=== PATIENT | male | born 1970 | race Caucasian/White ===

== ENCOUNTER 2021-05-01 06:59 | Day surgery (SDC) | payer MEDICARE, OTHER ==
[2021-04-28 15:06] VITALS: BMI 46.1
[~2021-05-01 06:59] MED LIST: LACTATED RINGERS 1,000 ML IV SCH; LIDOCAINE 1% (10MG/ML) FOR IV START INTRADERMA PRN
[2021-05-01 07:55] LABS: Glucose,Whole Blood 101 mg/dL (75-99)
[2021-05-01 07:58] VITALS: TEMP 97.4
[2021-05-01] MEDS ORDERED: PROPOFOL 10 MG/ML 20 ML VIAL IV ONE (08:26)
--- NOTE | 2021-05-01 08:45 | P.PCN ---
Date of Procedure: 05/01/21 Procedure(s) Performed: BRIEF HISTORY: Patient is a 50-year-old, pleasant, male scheduled for an upper endoscopy as a part of follow-up of gastric ulcers diagnosed in November of this year. Patient was admitted to [facility] with pneumonia and had acute upper GI bleed. He had an upper endoscopy done that revealed multiple gastric ulcers. He required several transfusions that time. He scheduled for follow-up endoscopy today. PROCEDURE PERFORMED: Esophagogastroduodenoscopy. PREOPERATIVE DIAGNOSIS: Follow-up gastric ulcer. IV sedation per anesthesia. PROCEDURE: After informed consent was obtained, the patient was brought into the endoscopy unit. IV sedation was administered by Anesthesia under continuous monitoring. Initially the Olympus GIF-140 video endoscope was inserted into the mouth. Esophagus intubated without any difficulty. It was gradually advanced into the stomach and duodenum and carefully examined. The bulb and the second part of the duodenum appeared normal. The scope at this time was withdrawn to the stomach, adequately insufflated with air, and upon careful examination, mucosa of the antrum had mild gastritis but the previous noted gastric ulcers have completely healed. The body, body, cardia and the fundus appeared normal. The scope was then withdrawn into the esophagus. The GE junction was located at 39 cm from the incisors. The esophagus appeared normal. There were no erosions or ulcerations seen and the patient tolerated the procedure well. IMPRESSION: 1. Completely healed previously noted gastric ulcers. 2. Mild antral gastritis. RECOMMENDATIONS: The findings of this examination were discussed with the patient as well as his family. He was advised to stop Protonix at this time. Avoid NSAIDs. Follow up in office as needed.
[2021-05-01 08:54] VITALS: RESP 16
[2021-05-01 09:00] LABS: Glucose,Whole Blood 107 mg/dL (75-99)
[2021-05-01 09:07] VITALS: BP 140/73; PULSE 66
== END 2021-05-01 10:02 | disposition home or self-care (01) ==
LOC: ORWHC2ENDO 06:59
PROVIDERS: ATTEND Internal Medicine Gastroenterology
DX: K25.4 Chronic or unspecified gastric ulcer with hemorrhage (principal); G47.33 Obstructive sleep apnea (adult) (pediatric); Z86.718 Personal history of other venous thrombosis and embolism; Z86.16 Personal history of COVID-19; K21.9 Gastro-esophageal reflux disease without esophagitis; Z79.01 Long term (current) use of anticoagulants
CPT/HCPCS: 43235; J2704

== ENCOUNTER 2021-08-31 19:51 | Inpatient (IN) | payer MEDICARE, OTHER ==
[2021-08-31] MEDS ORDERED: SODIUM CHLORIDE 0.9% 1,000 ML IV ONE (20:01)
[2021-08-31 20:54] LABS: Basophils % (A) 0 %; Eosinophils % (A) 0 %; HCT 43.7 % (39.0-53.0); HGB 13.4 gm/dL (13.0-17.5); Lymphocytes # (A) 0.3 k/uL (1.0-4.8); Lymphocytes % (A) 2 %; MCH 28.2 pg (25.0-35.0); MCHC 30.7 g/dL (31.0-37.0); Monocytes # (A) 0.5 k/uL (0-1.0); Monocytes % (A) 4 %; Neutrophils # (A) 13.5 k/uL (1.3-7.7); Neutrophils % (A) 94 %; Platelet Count 113 k/uL (150-450); RBC 4.75 m/uL (4.30-5.90); RDW 13.6 % (11.5-15.5); WBC 14.4 k/uL (3.8-10.6)
--- NOTE | 2021-08-31 20:58 | XR ---
EXAMINATION TYPE: XR chest 2V DATE OF EXAM: 08/31/2021 8:50 PM COMPARISON:None CLINICAL INDICATION:Male, 50 years old with history of altered mental status; TECHNIQUE: Frontal and lateral views of the chest. FINDINGS: Lungs/Pleura: Haziness opacities to the lungs are felt to be secondary to Low lung volumes are presen t. There is no evidence of pleural effusion, focal consolidation, or pneumothorax. Pulmonary vascularity: Unremarkable. Heart/mediastinum: Cardiomediastinal silhouette is unremarkable. Musculoskeletal: No acute osseous pathology. IMPRESSION: Low lung volumes without evidence for acute cardiopulmonary disease/process.
[2021-08-31 21:01] LABS: INR 1.1 (<1.2); Partial Thromboplastin Time 22.3 sec (22.0-30.0)
[2021-08-31 21:02] LABS: ALT 26 U/L (4-49); AST 31 U/L (17-59); African American GFR (CKD) >90 (>60 ml/min/1.73 sqM); Albumin 3.7 g/dL (3.5-5.0); Alkaline Phosphatase 75 U/L (38-126); Anion Gap 12 mmol/L; Blood Urea Nitrogen 24 mg/dL (9-20); C Reactive Protein 4.6 mg/dL (<1.0); Calcium 8.8 mg/dL (8.4-10.2); Carbon Dioxide 25 mmol/L (22-30); Chloride 102 mmol/L (98-107); Glucose 172 mg/dL (74-99); Non-African American GFR(CKD) 89 (>60 ml/min/1.73 sqM); Potassium 4.4 mmol/L (3.5-5.1); Sodium 139 mmol/L (137-145); Total Bilirubin 0.6 mg/dL (0.2-1.3); Total Protein 6.7 g/dL (6.3-8.2)
--- NOTE | 2021-08-31 21:06 | CT ---
EXAMINATION TYPE: CT brain wo con CT DLP: 1217.4 mGycm, Automated exposure control for dose reduction was used. DATE OF EXAM: 08/31/2021 8:55 PM COMPARISON: None.. CLINICAL INDICATION:Male, 50 years old with history of altered mental TECHNIQUE: Brain: Multiple axial CT images of the brain were obtained without IV contrast. FINDINGS: Brain: Limited evaluation secondary to patient motion. Extra-axial spaces: No abnormal extra-axial fluid collections. Ventricular system: Within normal limits Cerebral parenchyma: No acute intraparenchymal hemorrhage or mass effect. The ponce-white junction is well differentiated. Cerebellum: Unremarkable. Mass effect: No evidence of midline shift. Intracranial vasculature: unremarkable Soft tissues: Normal. Calvarium/osseous structures: No depressed skull fracture. Paranasal sinuses and mastoid air cells: Clear. Visualized orbits: Orbital contents are intact. IMPRESSION: Limited evaluation secondary motion without gross evidence for acute intracranial process.
[2021-08-31 21:27] LABS: Appearance,Urine Clear (Clear); Bacteria,Urine Occasional /hpf; Bilirubin,Urine Negative (Negative); Blood,Urine Small (Negative); Color,Urine Yellow; Glucose,Urine (UA) Negative (Negative); Ketones,Urine Negative (Negative); Leukocyte Esterase,Urine Trace (Negative); Mucus,Urine Rare /hpf; Nitrite,Urine Negative (Negative); PH, Urine 6.5 (5.0-8.0); Protein,Urine Trace (Negative); RBC,Urine 1 /hpf (0-5); Specific Gravity,Urine 1.026 (1.001-1.035); Squamous Epithelial Cell,Urine <1 /hpf (0-4); WBC,Urine 4 /hpf (0-5)
[2021-08-31 21:32] LABS: Amphetamine Screen,Urine Not Detected (NotDetected); Barbiturate Screen,Urine Not Detected (NotDetected); Benzodiazepines Screen,Urine Detected (NotDetected); Cocaine Screen,Urine Not Detected (NotDetected); Methadone Screen, Urine Not Detected (NotDetected); Opiate Screen,Urine Not Detected (NotDetected); Oxycodone Screen, Urine Not Detected (NotDetected); Phencyclidine Screen,Urine Not Detected (NotDetected); Tricyclic Antidepressant,Urine Not Detected (NotDetected); Urn Cannabinoid Scrn Not Detected (NotDetected)
[2021-08-31 22:44] LABS: Erythrocyte Sedimentation Rate 13 mm/hr (0-15)
--- NOTE | 2021-08-31 23:31 | ED ---
Altered Mental Status HPI - General Chief Complaint: Altered Mental Status Stated Complaint: Altered Mental Status Time Seen by Provider: 08/31/21 20:01 Source: patient, RN notes reviewed Mode of arrival: ambulatory Limitations: no limitations, altered mental status - History of Present Illness Initial Comments: Patient is a 50-year-old male that arrives to the emergency department via EMS for altered mental status. Patient does have a past medical history is recurrent a with multiple comorbidities including morbid obesity Covid infection bilateral pneumonia. Patient was a very poor historian and gave very poor effort during initial interview and exam. Patient denied any chest pain shortness of breath headache nausea vomiting diarrhea constipation fever fatigue chills. - Related Data Home Medications Medication Instructions Recorded Confirmed ALPRAZolam [Xanax] 0.5 mg PO BID 04/28/21 08/31/21 Cholecalciferol [Vitamin D3 (25 25 mcg PO DAILY 04/28/21 08/31/21 Mcg = 1000 Iu)] Escitalopram [Lexapro] 10 mg PO DAILY 04/28/21 08/31/21 Folic Acid 1 mg PO DAILY 04/28/21 08/31/21 Modafinil [Provigil] 100 mg PO BID 04/28/21 08/31/21 Omeprazole 20 mg PO BID 04/28/21 08/31/21 Apixaban [Eliquis] 2.5 mg PO BID 08/31/21 08/31/21 Cyanocobalamin (Vitamin B-12) 500 mcg PO DAILY 08/31/21 08/31/21 [Vitamin B-12] Insulin Aspart [NovoLOG Flexpen] See Protocol SQ AC-BID@0800,1200 08/31/2108/06 metFORMIN HCL ER [Glucophage XR] 500 mg PO BID-W/MEALS 08/31/21 08/31/21 Allergies Allergy/AdvReac Type Severity Reaction Status Date / Time bee venom protein (honey bee) Allergy Anaphylaxis Verified 08/31/21 22:25 latex Allergy Rash/Hives Verified 08/31/21 22:25 Review of Systems ROS Statement: Those systems with pertinent positive or pertinent negative responses have been documented in the HPI. ROS Other: All systems not noted in ROS Statement are negative. Past Medical History Past Medical History: Diabetes Mellitus, Deep Vein Thrombosis (DVT), GERD/Reflux, Osteoarthritis (OA), Sleep Apnea/CPAP/BIPAP Additional Past Medical History / Comment(s): Patient "got Covid 10 days after receiving the Covid Vaccine, ended up with double lung Pneumonia, DVT's in both legs, 3 bleeding stomach ulcers, internal bleeding, lost a lot of blood, received 15 units of blood, had dialysis 3 times, vocal cords got roughed up, can only whisper, is still in a wheelchair, can't walk, still in a Covid fog, has Umbrella in chest to prevent blood clots from entering." No CPAP use. History of Any Multi-Drug Resistant Organisms: None Reported Past Surgical History: No Surgical Hx Reported Additional Past Surgical History / Comment(s): "Umbrella placed in chest." Past Anesthesia/Blood Transfusion Reactions: No Reported Reaction Past Psychological History: ADD/ADHD, Anxiety Smoking Status: Never smoker Past Alcohol Use History: None Reported Past Drug Use History: None Reported - Past Family History Father Family Medical History: Deep Vein Thrombosis (DVT) Mother Family Medical History: Cancer, Myocardial Infarction (NM) General Exam Limitations: no limitations, altered mental status General appearance: alert, in no apparent distress, obese (Morbidly) Head exam: Present: atraumatic, normocephalic, normal inspection Eye exam: Present: normal appearance, PERRL, EOMI. Absent: scleral icterus, conjunctival injection, periorbital swelling ENT exam: Present: normal exam, mucous membranes moist, other (Very poor dentition) Neck exam: Present: normal inspection Respiratory exam: Present: normal lung sounds bilaterally. Absent: respiratory distress, wheezes, rales, rhonchi, stridor Cardiovascular Exam: Present: regular rate, normal rhythm, normal heart sounds. Absent: systolic murmur, diastolic murmur, rubs, gallop, clicks GI/Abdominal exam: Present: soft, normal bowel sounds. Absent: distended, tenderness, guarding, rebound, rigid Extremities exam: Present: normal inspection, full ROM, normal capillary refill. Absent: tenderness, pedal edema, joint swelling, calf tenderness Neurological exam: Present: alert, oriented X3 Psychiatric exam: Present: normal affect, normal mood Skin exam: Present: warm, dry, intact, normal color. Absent: rash Course Vital Signs 08/31/21 08/31/21 20:03 21:09 Temperature 99.0 F Pulse Rate 101 H 98 Respiratory 22 18 Rate Blood Pressure 153/78 131/71 O2 Sat by Pulse 95 97 Oximetry Medical Decision Making - Medical Decision Making Patient is a 50-year-old male more the obese altered mental status via EMS. Labs, EKG, chest x-ray, CT of the brain, 1 L normal saline ordered. Labs are unremarkable, lactic acid negative, troponin negative, ammonia negative Covid test negative. Chest x-ray lung volumes but no acute process. CT of brain negative for any acute process. Case discussed with Dr. Santiago, patient be admitted for observation. Lilia Jones was consulted and will admit or observation.. - Lab Data Result diagrams: 08/31/21 20:13 08/31/21 20:13 Lab Results 08/31/21 08/31/21 08/31/21 Range/Units 20:13 20:13 20:13 WBC 14.4 H (3.8-10.6) k/uL RBC 4.75 (4.30-5.90) m/uL Hgb 13.4 (13.0-17.5) gm/dL Hct 43.7 (39.0-53.0) % MCV 92.0 (80.0-100.0) fL MCH 28.2 (25.0-35.0) pg MCHC 30.7 L (31.0-37.0) g/dL RDW 13.6 (11.5-15.5) % Plt Count 113 L (150-450) k/uL MPV 9.0 Neutrophils % 94 % Lymphocytes % 2 % Monocytes % 4 % Eosinophils % 0 % Basophils % 0 % Neutrophils # 13.5 H (1.3-7.7) k/uL Lymphocytes # 0.3 L (1.0-4.8) k/uL Monocytes # 0.5 (0-1.0) k/uL Eosinophils # 0.0 (0-0.7) k/uL Basophils # 0.0 (0-0.2) k/uL ESR 13 (0-15) mm/hr PT 12.0 (9.0-12.0) sec INR 1.1 (<1.2) APTT 22.3 (22.0-30.0) sec Sodium (137-145) mmol/L Potassium (3.5-5.1) mmol/L Chloride (98-107) mmol/L Carbon Dioxide (22-30) mmol/L Anion Gap mmol/L BUN (9-20) mg/dL Creatinine (0.66-1.25) mg/dL Est GFR (CKD-EPI)AfAm (>60 ml/min/1.73 sqM) Est GFR (CKD-EPI)NonAf (>60 ml/min/1.73 sqM) Glucose (74-99) mg/dL Plasma Lactic Acid Carlos (0.7-2.0) mmol/L Calcium (8.4-10.2) mg/dL Total Bilirubin (0.2-1.3) mg/dL AST (17-59) U/L ALT (4-49) U/L Alkaline Phosphatase (38-126) U/L Ammonia (<30) umol/L Troponin I (0.000-0.034) ng/mL C-Reactive Protein (<1.0) mg/dL Total Protein (6.3-8.2) g/dL Albumin (3.5-5.0) g/dL Urine Color Yellow Urine Appearance Clear (Clear) Urine pH 6.5 (5.0-8.0) Ur Specific [place] 1.026 (1.001-1.035) Urine Protein Trace H (Negative) Urine Glucose (UA) Negative (Negative) Urine Ketones Negative (Negative) Urine Blood Small H (Negative) Urine Nitrite Negative (Negative) Urine Bilirubin Negative (Negative) Urine Urobilinogen 3.0 (<2.0) mg/dL Ur Leukocyte Esterase Trace H (Negative) Urine RBC 1 (0-5) /hpf Urine WBC 4 (0-5) /hpf Ur Squamous Epith Cells <1 (0-4) /hpf Urine Bacteria Occasional H (None) /hpf Urine Mucus Rare H (None) /hpf Urine Opiates Screen Not Detected (NotDetected) Ur Oxycodone Screen Not Detected (NotDetected) Urine Methadone Screen Not Detected (NotDetected) Ur Propoxyphene Screen Not Detected (NotDetected) Ur Barbiturates Screen Not Detected (NotDetected) U Tricyclic Antidepress Not Detected (NotDetected) Ur Phencyclidine Scrn Not Detected (NotDetected) Ur Amphetamines Screen Not Detected (NotDetected) U Methamphetamines Scrn Not Detected (NotDetected) U Benzodiazepines Scrn Detected H (NotDetected) Urine Cocaine Screen Not Detected (NotDetected) U Marijuana (THC) Screen Not Detected (NotDetected) Coronavirus (PCR) (Not Detectd) 08/31/21 08/31/21 08/31/21 Range/Units 20:13 20:13 21:59 WBC (3.8-10.6) k/uL RBC (4.30-5.90) m/uL Hgb (13.0-17.5) gm/dL Hct (39.0-53.0) % MCV (80.0-100.0) fL MCH (25.0-35.0) pg MCHC (31.0-37.0) g/dL RDW (11.5-15.5) % Plt Count (150-450) k/uL MPV Neutrophils % % Lymphocytes % % Monocytes % % Eosinophils % % Basophils % % Neutrophils # (1.3-7.7) k/uL Lymphocytes # (1.0-4.8) k/uL Monocytes # (0-1.0) k/uL Eosinophils # (0-0.7) k/uL Basophils # (0-0.2) k/uL ESR (0-15) mm/hr PT (9.0-12.0) sec INR (<1.2) APTT (22.0-30.0) sec Sodium 139 (137-145) mmol/L Potassium 4.4 (3.5-5.1) mmol/L Chloride 102 (98-107) mmol/L Carbon Dioxide 25 (22-30) mmol/L Anion Gap 12 mmol/L BUN 24 H (9-20) mg/dL Creatinine 1.00 (0.66-1.25) mg/dL Est GFR (CKD-EPI)AfAm >90 (>60 ml/min/1.73 sqM) Est GFR (CKD-EPI)NonAf 89 (>60 ml/min/1.73 sqM) Glucose 172 H (74-99) mg/dL Plasma Lactic Acid Carlos (0.7-2.0) mmol/L Calcium 8.8 (8.4-10.2) mg/dL Total Bilirubin 0.6 (0.2-1.3) mg/dL AST 31 (17-59) U/L ALT 26 (4-49) U/L Alkaline Phosphatase 75 (38-126) U/L Ammonia (<30) umol/L Troponin I <0.012 (0.000-0.034) ng/mL C-Reactive Protein 4.6 H (<1.0) mg/dL Total Protein 6.7 (6.3-8.2) g/dL Albumin 3.7 (3.5-5.0) g/dL Urine Color Urine Appearance (Clear) Urine pH (5.0-8.0) Ur Specific [place] (1.001-1.035) Urine Protein (Negative) Urine Glucose (UA) (Negative) Urine Ketones (Negative) Urine Blood (Negative) Urine Nitrite (Negative) Urine Bilirubin (Negative) Urine Urobilinogen (<2.0) mg/dL Ur Leukocyte Esterase (Negative) Urine RBC (0-5) /hpf Urine WBC (0-5) /hpf Ur Squamous Epith Cells (0-4) /hpf Urine Bacteria (None) /hpf Urine Mucus (None) /hpf Urine Opiates Screen (NotDetected) Ur Oxycodone Screen (NotDetected) Urine Methadone Screen (NotDetected) Ur Propoxyphene Screen (NotDetected) Ur Barbiturates Screen (NotDetected) U Tricyclic Antidepress (NotDetected) Ur Phencyclidine Scrn (NotDetected) Ur Amphetamines Screen (NotDetected) U Methamphetamines Scrn (NotDetected) U Benzodiazepines Scrn (NotDetected) Urine Cocaine Screen (NotDetected) U Marijuana (THC) Screen (NotDetected) Coronavirus (PCR) Not Detected (Not Detectd) 08/31/21 Range/Units 22:11 WBC (3.8-10.6) k/uL RBC (4.30-5.90) m/uL Hgb (13.0-17.5) gm/dL Hct (39.0-53.0) % MCV (80.0-100.0) fL MCH (25.0-35.0) pg MCHC (31.0-37.0) g/dL RDW (11.5-15.5) % Plt Count (150-450) k/uL MPV Neutrophils % % Lymphocytes % % Monocytes % % Eosinophils % % Basophils % % Neutrophils # (1.3-7.7) k/uL Lymphocytes # (1.0-4.8) k/uL Monocytes # (0-1.0) k/uL Eosinophils # (0-0.7) k/uL Basophils # (0-0.2) k/uL ESR (0-15) mm/hr PT (9.0-12.0) sec INR (<1.2) APTT (22.0-30.0) sec Sodium (137-145) mmol/L Potassium (3.5-5.1) mmol/L Chloride (98-107) mmol/L Carbon Dioxide (22-30) mmol/L Anion Gap mmol/L BUN (9-20) mg/dL Creatinine (0.66-1.25) mg/dL Est GFR (CKD-EPI)AfAm (>60 ml/min/1.73 sqM) Est GFR (CKD-EPI)NonAf (>60 ml/min/1.73 sqM) Glucose (74-99) mg/dL Plasma Lactic Acid Carlos 2.0 (0.7-2.0) mmol/L Calcium (8.4-10.2) mg/dL Total Bilirubin (0.2-1.3) mg/dL AST (17-59) U/L ALT (4-49) U/L Alkaline Phosphatase (38-126) U/L Ammonia <9 (<30) umol/L Troponin I (0.000-0.034) ng/mL C-Reactive Protein (<1.0) mg/dL Total Protein (6.3-8.2) g/dL Albumin (3.5-5.0) g/dL Urine Color Urine Appearance (Clear) Urine pH (5.0-8.0) Ur Specific [place] (1.001-1.035) Urine Protein (Negative) Urine Glucose (UA) (Negative) Urine Ketones (Negative) Urine Blood (Negative) Urine Nitrite (Negative) Urine Bilirubin (Negative) Urine Urobilinogen (<2.0) mg/dL Ur Leukocyte Esterase (Negative) Urine RBC (0-5) /hpf Urine WBC (0-5) /hpf Ur Squamous Epith Cells (0-4) /hpf Urine Bacteria (None) /hpf Urine Mucus (None) /hpf Urine Opiates Screen (NotDetected) Ur Oxycodone Screen (NotDetected) Urine Methadone Screen (NotDetected) Ur Propoxyphene Screen (NotDetected) Ur Barbiturates Screen (NotDetected) U Tricyclic Antidepress (NotDetected) Ur Phencyclidine Scrn (NotDetected) Ur Amphetamines Screen (NotDetected) U Methamphetamines Scrn (NotDetected) U Benzodiazepines Scrn (NotDetected) Urine Cocaine Screen (NotDetected) U Marijuana (THC) Screen (NotDetected) Coronavirus (PCR) (Not Detectd) - EKG Data -: EKG Interpreted by Me EKG shows normal: sinus rhythm Rate: normal EKG Comments: Ventricular rate 98 bpm, VT interval 168 ms, QRS duration 134 ms, normal sinus rhythm, right bundle branch block, abnormal ECG. - Radiology Data Radiology results: report reviewed, image reviewed Chest x-ray: Low lung volumes without evidence for acute cardiopulmonary process CT of the brain: Limited evaluation secondary motion without gross evidence for acute intracranial process. Disposition Clinical Impression: Altered mental status Disposition: ADMITTED IP TO THIS [facility] Condition: Stable Is patient prescribed a controlled substance at d/c from ED?: No Referrals: Jordon Niño DO [Primary Care Provider] - 1-2 days Time of Disposition: 23:32
[2021-08-31] MEDS ORDERED: NALOXONE 0.4 MG/ML 1 ML VIAL IV PRN ×2 (23:33)
[2021-09-01] MEDS: SODIUM CHLORIDE 0.9% 1,000 ML IV SCH ×3 (04:47→16:26)
--- NOTE | 2021-09-01 14:36 | HP ---
HISTORY AND PHYSICAL DATE OF SERVICE: 09/01/2021 CHIEF COMPLAINT: Change in mental status. HISTORY OF PRESENT ILLNESS: This 50-year-old gentleman with a past medical history of diabetes mellitus, history of DVT, history of GERD, DJD, obstructive sleep apnea, being followed by Dr. Jordon Niño in the outpatient setting, apparently had COVID-19 and also received the COVID vaccine. The patient apparently had bilateral pneumonia, DVTs and bleeding stomach ulcer, internal bleeding. The patient also had dialysis 3 times and subsequently patient was in a wheelchair. The patient was being monitored at home. Currently the patient is complaining of change in mental status and the patient is short of breath. The patient's pulse ox is about 92% on room air. The labs showed WBC 14.4. D-dimer was elevated at 2.13. The patient was admitted for further evaluation and treatment. Benzodiazepine was positive in the drug screen: COVID-[address] of the brain which was done during the current admission showed no acute medical issues. The chest x-ray, PA view, which was reviewed personally by me, showed possibly bibasilar infiltrates and cardiomegaly. It was a poorly positioned chest x-ray. There is no history of any fever, rigor or chills at this time. Patient is unable to give a coherent history; only sketchy history. PAST MEDICAL HISTORY: Recent COVID-19 pneumonia with multiple complications, as mentioned earlier, history of diabetes mellitus, type 2, DVT, GERD, DJD, sleep apnea. HOME MEDICATIONS: Metformin, insulin, NovoLog, omeprazole, Provigil, folic acid, Lexapro, Eliquis, Xanax. Doses are reviewed. ALLERGIES: BEE VENOM and LATEX. FAMILY HISTORY: History of DVT in the family. SOCIAL HISTORY: No history of smoking. No history of alcohol intake. REVIEW OF SYSTEMS: Review of systems could not be taken at length because of the patient's change in mental status. PHYSICAL EXAMINATION: The patient is conscious, confused. Pulse 76, blood pressure 123/78, respiration 18, temperature 98.4, pulse ox 92% on room air. HEENT: Conjunctivae normal. NECK: No jugular venous distention. CARDIOVASCULAR: S1, S2 muffled. RESPIRATION: Breath sounds diminished at the bases. A few scattered rhonchi and crackles. ABDOMEN: Soft, nontender. LEGS: No edema. No swelling. NERVOUS SYSTEM: Patient is dysarthric, diffusely weak, and tremors are present. Gait dysfunction also present. SKIN: No ulcer, rash, bleeding. JOINTS: No active deforming arthropathy. LABS: WBC 16.1, hemoglobin 13.4. D-dimer noted. Other labs are noted. ASSESSMENT: 1. Change in mental status and acute metabolic encephalopathy, possibly secondary to COVID-19. Rule out sepsis. 2. Increased white count. 3. Elevated D-dimer. Rule out acute pulmonary embolism. 4. Elevated random glucose and diabetes mellitus, type 2. 5. History of deep vein thrombosis. 6. Gastroesophageal reflux disease. 7. History of degenerative joint disease. 8. History of sleep apnea. 9. History of recent COVID-19 with bilateral deep vein thromboses and bleeding stomach ulcers, status post massive blood transfusions. 10.History of recent renal failure and hemodialysis. 11.History of recent IVC filter for deep vein thrombosis. 12.History attention deficit disorder, attention deficit hyperactivity disorder. 13.Anxiety. 14.Super morbid obesity. 15.FULL CODE. RECOMMENDATIONS AND DISCUSSION: In this 50-year-old gentleman who presented with multiple complex medical issues, we will monitor the patient closely, continue the current medications, continue symptomatic treatment. Otherwise, CT angio of the chest. Recommend pulmonary, infectious disease and neurology evaluations. Prognosis guarded because of multiple complex medical issues. Further recommendations to follow. I would also recommend hematology/oncology evaluation, with history of recent DVT. Proton pump inhibitors and prophylactic medication also will be noted and cultures will be obtained. Old charts are also obtained. Prognosis guarded. A copy of this dictation is being forwarded to Dr. Nioñ, who is the primary physician. Once the patient's sensorium improves, the patient will need PT/OT evaluation and possible ECF rehab, given the patient's multiple comorbidities. extreme shortness of breath, gait dysfunction and change in mental status. MMODL / IJN: [id number] /
--- NOTE | 2021-09-01 15:21 | US ---
EXAMINATION TYPE: US venous doppler duplex LE BI DATE OF EXAM: 09/01/2021 3:02 PM COMPARISON: NONE CLINICAL HISTORY: dvt. Patient poor historian, but family member states patient was weak on right si de and fell at other facility SIDE PERFORMED: Bilateral TECHNIQUE: The lower extremity deep venous system is examined utilizing real time linear array sonog anabella with graded compression, doppler sonography and color-flow sonography. VESSELS IMAGED: Common Femoral Vein Deep Femoral Vein Greater Saphenous Vein * Femoral Vein Popliteal Vein Small Saphenous Vein * Proximal Calf Veins (* superficial vessels) Right Leg: No OBVIOUS DVT, however sub optimal exam overall due to patient's very large size and cristy bility to move. Left Leg: No OBVIOUS DVT, however sub optimal exam overall due to patient's very large size and inab ility to move. Some areas very difficult to see. ? thready flow. Suboptimal exam overall. IMPRESSION: No definite DVT although examination is considered limited.
--- NOTE | 2021-09-01 15:52 | CT ---
EXAMINATION TYPE: CT angio chest DATE OF EXAM: 09/01/2021 COMPARISON: None HISTORY: h/o covid, checking for pe CT DLP: 849.8 mGycm CONTRAST: CT chest with contrast and 3D reconstruction with MIP imaging is performed with IV Contrast, patient injected with 100 mL of Isovue 370. Contrast-enhanced CT of the chest was performed through the course of the pulmonary arteries with mary g and mediastinal window settings submitted. 3D reconstruction with MIP imaging was also performed. PULMONARY ARTERIES: The pulmonary arteries and their major tributaries are patent. I do not see bakari dence for sizable filling defect to suggest pulmonary embolic process. LUNGS: Scattered patchy infiltrates seen bilaterally felt to reflect underlying pneumonia. No evidenc e for atelectasis. No pulmonary nodule or mass is detected. No pleural effusion. MEDIASTINUM: Thoracic aorta is of normal caliber,however, evaluation is limited given timing of the contrast bolus. If there is concern for thoracic aortic pathology consider QUINTIN. Correlate clinicall y . The heart is not enlarged. No evidence for mediastinal mass. No mediastinal lymph nodes greater than 1cm. HILAR STRUCTURES: No evidence for mass. No hilar lymph nodes greater than 1 cm. UPPER ABDOMEN: No significant abnormality is seen. IMPRESSION: 1. No evidence for Pulmonary embolism at this time.
[2021-09-01 17:28] LABS: Glucose,Whole Blood 130 mg/dL (75-99)
[2021-09-01] MEDS: INSULIN ASPART (NovoLOG) 100 UNIT/ML VIAL SQ SCH ×2 (17:33→20:33)
[2021-09-01 20:18] LABS: Glucose,Whole Blood 113 mg/dL (75-99)
[2021-09-01] MEDS: APIXABAN 2.5 MG TABLET PO SCH (20:39)
[2021-09-01] MEDS: PANTOPRAZOLE 40 MG/10 ML VIAL IVP SCH (20:40)
[2021-09-01] MEDS ORDERED: OMEPRAZOLE 20 MG PO SCH (21:00)
--- NOTE | 2021-09-01 21:33 | P.CNNES ---
History of Present Illness Consult date: 09/01/21 Requesting physician: Marjan Evans Reason for Consult: Altered mental status History of Present Illness: Patient is a 50-year-old male came to the hospital by ambulance yesterday at 7:51 PM. Patient has learning disability. He states that he came to the hospital to get checked out. At present he states that he feels fine, no complaints, no concerns. As per EMS flow sheet, when they arrived patient was sitting in the chair in living room, not responding normally as per patient's parents on the scene. Patient has been awake since 11 AM and has not been feeling himself since then, but at around 3:57 PM, he has stopped responding significantly. Patient was slumped over in the chair and will acknowledge EMS personnel but would not speak. Patient nods his head when asked if he feels weak, and shakes his head if he is in pain or having difficulty in breathing. Patient's vital signs at the scene was blood pressure 135/77, pulse 94, respirations 16 saturation 99%, blood sugar [address] head showed limited evaluation secondary to motion without gross evidence for acute intracranial process. EKG shows normal sinus rhythm, right bundle branch block. Chest x-ray with low lung volumes without evidence for acute cardiac or related process. Blood tests shows WBC 14.4 hemoglobin 13.4, platelets 113. PT/PTT normal. Electrolytes are normal, renal functions normal. Hepatic panel normal. Troponin negative. UA shows trace leukocyte esterase. Urine drug screen positive for benzodiazepines. Coronavirus PCR negative. Patient states that he lives with his parents. He walks by himself, does not use any device. Denies any visual symptoms. No numbness or tingling or pain anywhere. Patient denies any tobacco or alcohol use. I spoke to patient's dad, who mentions that yesterday morning he woke up, got out of bed, took a shower and then watch TV with his dad. After lunch she took a nap. When he woke up, he was leaning to the side. He looked very weak, the temperature and blood pressure were fine, but his sugar was slightly high at 227. He was not answering questions, couldn't stand up, couldn't squeeze hands. Therefore they called the ambulance. Patient's dad believes that he was getting night sweats, and he may have been dehydrated. Patient has slight learning disability with IQ of 67. Patient's dad states that early this year, he received the Covid shot, and after that he developed bilateral pneumonia, was intubated. He developed DVTs, followed by kidney failure, bleeding ulcers. He was very sick. After he got out of the hospital, he could not even roll over in the bed. He worked a lot with physical therapy. He started walking with a walker around the second week of May 2021. At first he only walked 200 feet. However gradually the end urance is improved. Now he can walk about half a mile with his walker. He works on the parallel bars with his walker. Review of Systems Patient denies any visual symptoms. Patient states that he walks by himself, does not use a device. Denies any chest pain shortness of breath wheezing or cough. He does have peripheral edema. All other 14 point review of systems n oncontributory to the present illness. Past Medical History Past Medical History: Diabetes Mellitus, Deep Vein Thrombosis (DVT), GERD/Reflux, Osteoarthritis (OA), Sleep Apnea/CPAP/BIPAP Additional Past Medical History / Comment(s): Patient "got Covid 10 days after receiving the Covid Vaccine, ended up with double lung Pneumonia, DVT's in both legs, 3 bleeding stomach ulcers, internal bleeding, lost a lot of blood, received 15 units of blood, had dialysis 3 times, vocal cords got roughed up, can only whisper, is still in a wheelchair, can't walk, still in a Covid fog, has Umbrella in chest to prevent blood clots from entering." No CPAP use. History of Any Multi-Drug Resistant Organisms: None Reported Past Surgical History: No Surgical Hx Reported Additional Past Surgical History / Comment(s): "Umbrella placed in chest." Past Anesthesia/Blood Transfusion Reactions: No Reported Reaction Past Psychological History: ADD/ADHD, Anxiety Smoking Status: Never smoker Past Alcohol Use History: None Reported Past Drug Use History: None Reported - Past Family History Father Family Medical History: Deep Vein Thrombosis (DVT) Mother Family Medical History: Cancer, Myocardial Infarction ([place]) Medications and Allergies Home Medications Medication Instructions Recorded Confirmed Type ALPRAZolam [Xanax] 0.5 mg PO BID 04/28/21 08/31/21 History Cholecalciferol [Vitamin D3 (25 25 mcg PO DAILY 04/28/21 08/31/21 History Mcg = 1000 Iu)] Escitalopram [Lexapro] 10 mg PO DAILY 04/28/21 08/31/21 History Modafinil [Provigil] 100 mg PO BID 04/28/21 08/31/21 History RX: Folic Acid 1 mg PO DAILY 04/28/21 08/31/21 History RX: Omeprazole 20 mg PO BID 04/28/21 08/31/21 History Apixaban [Eliquis] 2.5 mg PO BID 08/31/21 08/31/21 History Cyanocobalamin (Vitamin B-12) 500 mcg PO DAILY 08/31/21 08/31/21 History [Vitamin B-12] Insulin Aspart [NovoLOG Flexpen] See Protocol SQ AC-BID@0800,1200 08/31/21 08/31/21 History metFORMIN HCL ER [Glucophage XR] 500 mg PO BID-W/MEALS 08/31/21 08/31/21 History Allergies Allergy/AdvReac Type Severity Reaction Status Date / Time bee venom protein (honey bee) Allergy Anaphylaxis Verified 08/31/21 22:25 latex Allergy Rash/Hives Verified 08/31/21 22:25 Physical Examination - Vital Signs Vital Signs: Vital Signs Temp Pulse Pulse Resp BP BP Pulse Ox 09/01/21 06:00 99.8 F H 90 20 147/73 92 L 09/01/21 04:48 96 22 106/74 98 09/01/21 00:00 99 18 154/86 98 08/31/21 21:09 98 18 131/71 97 08/31/21 20:03 99.0 F 101 H 22 153/78 95 Intake and Output 08/31/21 09/01/21 09/01/21 22:59 06:59 14:59 Intake Total 780 Balance 780 Intake: Intake, IV Titration 780 Amount Sodium Chloride 0.9% 1, 780 000 ml @ 130 mls/hr IV . Q7H42M [facility] Rx#:[id number] Other: Voiding Method Indwelling Catheter Weight 136.078 kg 136.078 kg Patient is a middle aged male, moderately obese, in no acute distress. Patient is alert awake. He knows that he is in a hospital called [facility]", in [facility]. He could not tell the month, stating "I cannot think". He states the year is 2014, could not tell name of the president. Speech and language functions are normal. Attention, concentration and fund of knowledge is limited. On cranial examination, pupils are round and reacting to light, visual l[place]o are full on confrontation, extraocular muscles are intact with no nystagmus. Face is symmetric, tongue protrudes to the midline. Palatal elevation and sensation normal, hearing and shoulder shrug normal, facial sensation normal. Shoulder shrug normal. On muscle strength testing, there is no pronator drift and the strength is normal in arms and legs distally and proximally. Deep tendon reflexes are diminished and plantars are flat bilaterally. Sensory to touch is equal with no neglect. Cerebellar function showed no ataxia for [id number] testing. Tone and bulk of muscles normal. Gait not checked. On general examination, there is no carotid bruit or murmur, S1-S2 audible. Abdomen is soft nontender, no organomegaly. Chest is clear. Patient has significant venous stasis in the legs, skin changes with hyperpigmentation. He has positive peripheral edema. Results - Laboratory Findings CBC and BMP: 08/31/21 20:13 08/31/21 20:13 Abnormal Lab Findings: Abnormal Labs 08/31/21 08/31/21 08/31/21 20:13 20:13 20:13 WBC 14.4 H MCHC 30.7 L Plt Count 113 L Neutrophils # 13.5 H Lymphocytes # 0.3 L BUN 24 H Glucose 172 H C-Reactive Protein 4.6 H Urine Protein Trace H Urine Blood Small H Ur Leukocyte Esterase Trace H Urine Bacteria Occasional H Urine Mucus Rare H U Benzodiazepines Scrn Detected H Assessment and Plan Assessment: * Syncopal spell, probably vasovagal. * History of severe Covid infection, status post prolonged rehab. * History of GI bleed, bilateral DVT. * History of renal insufficiency, now resolved. * Morbid obesity. * Venous stasis in the lower extremities. * History of learning disability Plan: * Carotid Doppler to rule out stenosis * Patient probably had a syncopal spell. Stay well hydrated. * Patient's ammonia is normal < 9, hemoglobin A1c 5.0 on 03/04/2021. B12 1291. * Neurologically, no other workup indicated. * Discussed with patient's dad in detail. * Thank you for the consult.
--- NOTE | 2021-09-02 00:27 | US ---
EXAMINATION TYPE: US carotid duplex BILAT DATE OF EXAM: 09/02/2021 COMPARISON: CT CLINICAL HISTORY: Syncope. Syncope. EXAM MEASUREMENTS: RIGHT: Peak Systolic Velocity (PSV) cm/sec ----- Right CCA: 90.0 ----- Right ICA: 72.5 ----- Right ECA: 95.3 ICA/CCA ratio: 0.8 RIGHT: End Diastole cm/sec ----- Right CCA: 14.4 ----- Right ICA: 17.3 ----- Right ECA: 0.0 LEFT: Peak Systolic Velocity (PSV) cm/sec ----- Left CCA: 83.7 ----- Left ICA: 73.2 ----- Left ECA: 94.0 ICA/CCA ratio: 0.9 LEFT: End Diastole cm/sec ----- Left CCA: 19.8 ----- Left ICA: 27.0 ----- Left ECA: 7.2 VERTEBRALS (direction of flow): Right Vertebral: Antegrade Left Vertebral: Antegrade Rhythm: Normal Exam is limited due to high bifurcations. Intimal thickening seen within bilateral CCAs. Plaque seen within right carotid bulb and right prox ICA. No elevated velocities at this time. -Hypoechoic area with hyperechoic center seen within the right neck: 1.7 x 1.5 x 0.8 cm. Incidental finding: There appear to be internal echoes within what appears to be the right internal jugular vein. Color defect is visualized. Vein appears to compress incompletely. IMPRESSION: There is antegrade flow in the vertebral arteries. The images and measurement suggests less than 20% stenosis in both internal carotid arteries. There appears to be some thrombus in the right jugular vein without complete occlusion and this is co nsistent with chronic venous thrombosis.. Criteria for Assigning % of Stenosis / Diameter reduction (Estimation based on the indirect measurements of the internal carotid artery velocities (ICA PSV). 1. Normal (no stenosis)=ICA PSV < 125 cm/s: ratio < 2.0: ICA EDV<40 cm/s. 2. Less than 50% stenosis=ICA PSV < 125 cm/s: ratio < 2.0: ICA EDV<40 cm/s. 3. 50 to 69% stenosis=ICA PSV of 125 to 230 cm/s: ration 2.0 ? 4.0: ICA EDV 40-100 cm/s. 4. Greater than 70% stenosis to near occlusion= ICA PSV > 230 cm/s: ratio > 4.0: ICA EDV > 100 cm/s. 5. Near occlusion= ICA PSV velocities may be low or undetectable: variable ratio and ICA EDV. 6. Total occlusion=unable to detect flow.
--- NOTE | 2021-09-02 00:36 | P.CONS ---
History of Present Illness - Reason for Consult Consult date: 09/01/21 Fever/AMS Requesting physician: Marjan Evans - Chief Complaint weakness x 1 day - History of Present Illness History of present illness : Patient is a 50-year-old male who was brought into the ER for evaluation of her mental status changes along with the weakness and leaning towards 1 side with the symptoms started the day of presentation to the hospital per the history provided mostly by the family at the bedside and the patient himself was not a very good historian patient recently did have a prolonged stay at [facility] with a COVID- 19 pneumonia in this patient did have a complicating factor of the DVT and bleeding peptic ulcer disease requiring a [place] filter placement, patient on presentation to the hospital have a low-grade fever of 99.8 F patient did not have any significant hypoxemia or need for supplemental oxygen patient did have white count of 14.4 with mild left shift D-dimer was mildly elevated creatinine was normal liver enzymes are normal urine has been negative urine testing was positive benzo melgar PCR was negative blood cultures obtained which are currently pending patient did have a chest x-ray low lung volumes without evidence for acute cardiopulmonary process patient did have a CT angiogram of the chest no evidence of PE scattered patchy infiltrates seen bilaterally for the reflect underlying pneumonia infectious was consulted for this fever in this patient currently denies having any fever until the patient is having any headache patient know that he is at [facility], symptom has been mostly weakness and leaning towards 1 side and also noticed to have some hematuria and dark urine per the family Review of system: CONSTITUTIONAL: Positive for weakness denies high-grade fever. EYES: No complaint. ENT: No complaint. RESPIRATORY: No complaint. CARDIOVASCULAR: No complaint. GENITOURINARY: As per history of present illness. GASTROINTESTINAL: No complaint. MUSCULOSKELETAL: No complaint. INTEGUMENTARY: No complaint. PSYCHOLOGIC: No complaint. ENDOCRINE: No complaint. NEUROLOGIC: As per history of present illness. Past medical history : Reviewed, documented below Past surgical history : Reviewed, documented below Social history: Reviewed, documented below Medications: Reviewed, as documented below EXAMINATION: Vital sigans= Reviewed and documented below GENERAL DESCRIPTION: Middle-aged male lying in bed, no distress. No tachypnea or accessory muscle of respiration use. HEENT: Shows Pallor , no scleral icterus. Oral mucous membrane is dry. NECK: Trachea central, no thyromegaly. LUNGS: Unlabored breathing. Clear to auscultation anteriorly. No wheeze or crackle. HEART: S1, S2, regular rate and rhythm. ABDOMEN: Soft, no tenderness , guarding or rigidity EXTREMITIES: No edema of feet. SKIN: No rash, no masses palpable. NEUROLOGICAL: The patient is awake, alert, oriented x3, mood and affect normal. LABS AND RADIOLOGY: Reviewed results see below Assessment : Patient presented to hospital with weakness and leaning towards 1 side, and this patient did have a low-grade fever of 99.8 F and the patient did have mildly elevated white count however had no other obvious focus of infection chest x-ray was reported negative for any acute pneumonia CT angiogram does have some scattered infiltrate urine has been negative abdominal soft examination no headache or neck rigidity clinic suspicion low for FIRST BEATER infection Plan: 1-we will repeat his urine culture and check influenza AMB PCR 2-we will recheck his inflammatory markers with a.m. lab 3-hold on any systemic antibiotic therapy at this point We will follow on clinical condition and cultures to further adjust medication if needed Thank you for this consultation we will follow the patient along with you Past Medical History Past Medical History: Diabetes Mellitus, Deep Vein Thrombosis (DVT), GERD/Reflux, Osteoarthritis (OA), Sleep Apnea/CPAP/BIPAP Additional Past Medical History / Comment(s): Patient "got Covid 10 days after receiving the Covid Vaccine, ended up with double lung Pneumonia, DVT's in both legs, 3 bleeding stomach ulcers, internal bleeding, lost a lot of blood, received 15 units of blood, had dialysis 3 times, vocal cords got roughed up, can only whisper, is still in a wheelchair, can't walk, still in a Covid fog, has Umbrella in chest to prevent blood clots from entering." No CPAP use. History of Any Multi-Drug Resistant Organisms: None Reported Past Surgical History: No Surgical Hx Reported Additional Past Surgical History / Comment(s): "Umbrella placed in chest." Past Anesthesia/Blood Transfusion Reactions: No Reported Reaction Past Psychological History: ADD/ADHD, Anxiety Smoking Status: Never smoker Past Alcohol Use History: None Reported Past Drug Use History: None Reported - Past Family History Father Family Medical History: Deep Vein Thrombosis (DVT) Mother Family Medical History: Cancer, Myocardial Infarction ([place]) Medications and Allergies Home Medications Medication Instructions Recorded Confirmed Type ALPRAZolam [Xanax] 0.5 mg PO BID 04/28/21 08/31/21 History Cholecalciferol [Vitamin D3 (25 25 mcg PO DAILY 04/28/21 08/31/21 History Mcg = 1000 Iu)] Escitalopram [Lexapro] 10 mg PO DAILY 04/28/21 08/31/21 History Folic Acid 1 mg PO DAILY 04/28/21 08/31/21 History Modafinil [Provigil] 100 mg PO BID 04/28/21 08/31/21 History Omeprazole 20 mg PO BID 04/28/21 08/31/21 History Apixaban [Eliquis] 2.5 mg PO BID 08/31/21 08/31/21 History Cyanocobalamin (Vitamin B-12) 500 mcg PO DAILY 08/31/21 08/31/21 History [Vitamin B-12] Insulin Aspart [NovoLOG Flexpen] See Protocol SQ AC-BID@0800,1200 08/31/21 08/31/21 History metFORMIN HCL ER [Glucophage XR] 500 mg PO BID-W/MEALS 08/31/21 08/31/21 History Allergies Allergy/AdvReac Type Severity Reaction Status Date / Time bee venom protein (honey bee) Allergy Anaphylaxis Verified 08/31/21 22:25 latex Allergy Rash/Hives Verified 08/31/21 22:25 Physical Exam Vitals: Vital Signs Temp Pulse Pulse Resp BP BP Pulse Ox 09/01/21 06:00 99.8 F H 90 20 147/73 92 L 09/01/21 04:48 96 22 106/74 98 09/01/21 00:00 99 18 154/86 98 08/31/21 21:09 98 18 131/71 97 08/31/21 20:03 99.0 F 101 H 22 153/78 95 Intake and Output 08/31/21 09/01/21 09/01/21 22:59 06:59 14:59 Intake Total 780 Balance 780 Intake: Intake, IV Titration 780 Amount Sodium Chloride 0.9% 1, 780 000 ml @ 130 mls/hr IV . Q7H42M [facility] Rx#:[id number] Other: Voiding Method Indwelling Catheter Weight 136.078 kg 136.078 kg Results CBC & Chem 7: 08/31/21 20:13 08/31/21 20:13 Labs: Abnormal Lab Results - Last 24 Hours (Table) 08/31/21 08/31/21 08/31/21 Range/Units 20:13 20:13 20:13 WBC 14.4 H (3.8-10.6) k/uL MCHC 30.7 L (31.0-37.0) g/dL Plt Count 113 L (150-450) k/uL Neutrophils # 13.5 H (1.3-7.7) k/uL Lymphocytes # 0.3 L (1.0-4.8) k/uL BUN 24 H (9-20) mg/dL Glucose 172 H (74-99) mg/dL C-Reactive Protein 4.6 H (<1.0) mg/dL Urine Protein Trace H (Negative) Urine Blood Small H (Negative) Ur Leukocyte Esterase Trace H (Negative) Urine Bacteria Occasional H (None) /hpf Urine Mucus Rare H (None) /hpf U Benzodiazepines Scrn Detected H (NotDetected)
[2021-09-02 01:00] LABS: Glucose,Whole Blood 116 mg/dL (75-99)
[2021-09-02 03:14] LABS: Appearance,Urine Clear (Clear); Bacteria,Urine Rare /hpf; Bilirubin,Urine Negative (Negative); Blood,Urine Small (Negative); Color,Urine Yellow; Glucose,Urine (UA) Negative (Negative); Ketones,Urine 1+ (Negative); Leukocyte Esterase,Urine Negative (Negative); Nitrite,Urine Negative (Negative); Protein,Urine Trace (Negative); RBC,Urine 15 /hpf (0-5); Squamous Epithelial Cell,Urine <1 /hpf (0-4); WBC,Urine 4 /hpf (0-5)
[2021-09-02] MEDS: SODIUM CHLORIDE 0.9% 1,000 ML IV SCH ×3 (05:39→18:12)
[2021-09-02 06:32] LABS: Basophils % (A) 0 %; Eosinophils % (A) 1 %; HGB 13.2 gm/dL (13.0-17.5); Hypochromasia Moderate; Lymphocytes # (A) 0.7 k/uL (1.0-4.8); Lymphocytes % (A) 17 %; MCH 28.7 pg (25.0-35.0); MCHC 30.8 g/dL (31.0-37.0); MCV 93.4 fL (80.0-100.0); Mean Platelet Volume 8.7; Monocytes # (A) 0.3 k/uL (0-1.0); Monocytes % (A) 8 %; Neutrophils # (A) 3.1 k/uL (1.3-7.7); Neutrophils % (A) 71 %; RBC 4.61 m/uL (4.30-5.90); RDW 14.1 % (11.5-15.5); WBC 4.4 k/uL (3.8-10.6)
[2021-09-02 06:50] LABS: Platelet Count 90 k/uL (150-450)
[2021-09-02 07:24] LABS: Glucose,Whole Blood 125 mg/dL (75-99)
[2021-09-02] MEDS: INSULIN ASPART (NovoLOG) 100 UNIT/ML VIAL SQ SCH ×4 (07:26→23:14)
[2021-09-02] MEDS: modafiniL 100 MG TAB PO SCH ×2 (08:51→12:23)
[2021-09-02] MEDS: FOLIC ACID 1 MG TAB PO SCH (09:23)
[2021-09-02] MEDS: PANTOPRAZOLE 40 MG/10 ML VIAL IVP SCH ×2 (09:23→20:37)
[2021-09-02] MEDS: CHOLECALCIFEROL 25 MCG (1000 IU) TABLET PO SCH (09:23)
[2021-09-02] MEDS: CYANOCOBALAMIN 500 MCG TAB PO SCH (09:23)
[2021-09-02] MEDS: ESCITALOPRAM 10 MG TAB PO SCH (09:24)
[2021-09-02] MEDS: APIXABAN 2.5 MG TABLET PO SCH ×2 (09:24→20:37)
[2021-09-02 10:28] LABS: African American GFR (CKD) 121.4 (60.0-200.0); Anion Gap 14.3 mmol/L (10.00-18.00); BUN/Creat Ratio 16.18 Ratio (12.00-20.00); Blood Urea Nitrogen 13.2 mg/dL (9.0-27.0); Calcium 8.6 mg/dL (8.7-10.3); Carbon Dioxide 20.1 mmol/L (20.0-27.5); Non-African American GFR(CKD) 104.8 (60.0-200.0); Potassium 4.2 mmol/L (3.5-5.5)
[2021-09-02 11:44] LABS: Glucose,Whole Blood 133 mg/dL (75-99)
[2021-09-02] MEDS: MULTIVITAMINS, THERA 1 EACH TAB PO SCH (12:23)
[2021-09-02] MEDS: THIAMINE 100 MG TAB PO SCH (12:23)
--- NOTE | 2021-09-02 16:46 | P.CONS ---
History of Present Illness - Reason for Consult Consult date: 09/02/21 Rt juggular DVT Requesting physician: Marjan Evans - Chief Complaint AMS - History of Present Illness Godfrey is a very pleasant male pt of Dr. Love who had COVID December/2020, during which he had a very complicated course. Was initially at [facility] then transferred to [facility], had respiratory failure, was intubated, also developed renal failure that required dialysis. Diagnosed with LLL segmental PE and left posterior tibial vein DVT, RLE post tib and RCF DVT. While on IV heparin he developed significant right thigh hematoma with significant drop in hemoglobin, IV heparin was stopped, had IVC filter placed and then subsequently was placed on prophylactic dose of lovenox. He had a prolonged hospital stay, inpatient rehab at [facility] and then transferred to rehab in [place]. He was seen by Dr. Love March, Apr, Jun and Jul. Pt cont to improve his PS and was getting around much better. It was felt that ideally he should be off anti coagulation after thrombosis related to COVID but, mobility remained limited, chronic edema and venous stasis and morbid obesity all put pt at high risk of recurrent thrombosis. After discussion, family agreed that prophylactic dose of eliquis risk vs benefit was slightly more favorable to remain on anticoagulation. Pt admitted with AMS, unilateral deficit. When seen pt was walking in the hallway with walker and PT, no unilateral deficits, pt denies pain, headache, vision changes, weakness in the arms or legs. He does not know if he is on blood thinners, he denies nose bleeding. Review of Systems Pt was alert and answered as documented in HPI ROS unobtainable: due to mental status Past Medical History Past Medical History: Diabetes Mellitus, Deep Vein Thrombosis (DVT) (BLE 01/2021), GERD/Reflux, Osteoarthritis (OA), Pulmonary Embolus (PE) (LLL 02/2021), Sleep Apnea/CPAP/BIPAP Additional Past Medical History / Comment(s): Patient "got Covid 10 days after receiving the Covid Vaccine, ended up with double lung Pneumonia, DVT's in both legs, 3 bleeding stomach ulcers, internal bleeding, lost a lot of blood, received 15 units of blood, had dialysis 3 times, vocal cords got roughed up, can only whisper, is still in a wheelchair, can't walk, still in a Covid fog, has Umbrella in chest to prevent blood clots from entering." No CPAP use. History of Any Multi-Drug Resistant Organisms: None Reported Past Surgical History: No Surgical Hx Reported Additional Past Surgical History / Comment(s): "Umbrella placed in chest." Past Anesthesia/Blood Transfusion Reactions: No Reported Reaction Past Psychological History: ADD/ADHD, Anxiety Smoking Status: Never smoker Past Alcohol Use History: None Reported Past Drug Use History: None Reported - Past Family History Father Family Medical History: Deep Vein Thrombosis (DVT) Mother Family Medical History: Cancer, Myocardial Infarction (ME) Medications and Allergies Home Medications Medication Instructions Recorded Confirmed Type ALPRAZolam [Xanax] 0.5 mg PO BID 04/28/21 08/31/21 History Cholecalciferol [Vitamin D3 (25 25 mcg PO DAILY 04/28/21 08/31/21 History Mcg = 1000 Iu)] Escitalopram [Lexapro] 10 mg PO DAILY 04/28/21 08/31/21 History Folic Acid 1 mg PO DAILY 04/28/21 08/31/21 History Modafinil [Provigil] 100 mg PO BID 04/28/21 08/31/21 History Omeprazole 20 mg PO BID 04/28/21 08/31/21 History Apixaban [Eliquis] 2.5 mg PO BID 08/31/21 08/31/21 History Cyanocobalamin (Vitamin B-12) 500 mcg PO DAILY 08/31/21 08/31/21 History [Vitamin B-12] Insulin Aspart [NovoLOG Flexpen] See Protocol SQ AC-BID@0800,1200 08/31/21 08/31/21 History metFORMIN HCL ER [Glucophage XR] 500 mg PO BID-W/MEALS 08/31/21 08/31/21 History Allergies Allergy/AdvReac Type Severity Reaction Status Date / Time bee venom protein (honey bee) Allergy Anaphylaxis Verified 08/31/21 22:25 latex Allergy Rash/Hives Verified 08/31/21 22:25 Physical Exam Vitals: Vital Signs Temp Pulse Resp BP Pulse Ox 09/02/21 05:00 97.8 F 92 18 123/84 93 L 09/02/21 01:02 98.2 F 09/01/21 20:00 75 20 09/01/21 19:40 99.3 F 75 20 125/80 96 09/01/21 11:55 98.4 F 76 18 123/78 92 L Intake and Output 09/01/21 09/02/21 09/02/21 22:59 06:59 14:59 Intake Total 1950 Output Total 1400 350 Balance 550 -350 Intake: Intake, IV Titration 1950 Amount Sodium Chloride 0.9% 1, 1950 000 ml @ 130 mls/hr IV . Q7H42M [facility] Rx#:[id number] Output: Urine 1400 350 Other: Voiding Method Indwelling Catheter - Constitutional General appearance: cooperative, morbidly obese, no acute distress - EENT Eyes: anicteric sclerae, EOMI ENT: hearing grossly normal - Neck Neck: no lymphadenopathy - Respiratory Respiratory: bilateral: CTA - Cardiovascular Rhythm: regular Heart sounds: normal: S1, S2 Abnormal Heart Sounds: no systolic murmur, no diastolic murmur, no rub, no S3 Gallop, no S4 Gallop, no click, no other leg Peripheral Edema: bilateral: 1+ - Gastrointestinal General gastrointestinal: normal bowel sounds, soft - Integumentary Skin bronzed on BLE consistent with venous insufficiency - Neurologic face and smile symmetrical, pt able to lift both arms and legs equally Neurologic: CNII-XII intact (grossly) - Musculoskeletal Musculoskeletal: generalized weakness, strength equal bilaterally - Psychiatric Psychiatric: A&O x's 3, appropriate affect Results CBC & Chem 7: 09/02/21 06:07 09/02/21 06:07 Labs: Abnormal Lab Results - Last 24 Hours (Table) 09/01/21 09/01/21 09/01/21 Range/Units 11:20 15:41 15:41 MCHC (31.0-37.0) g/dL Plt Count (150-450) k/uL Lymphocytes # (1.0-4.8) k/uL ESR 17 H (0-15) mm/hr D-Dimer 2.13 H (<0.60) mg/L FEU POC Glucose (mg/dL) (75-99) mg/dL C-Reactive Protein 15.0 H (<1.0) mg/dL Urine Protein (Negative) Urine Ketones (Negative) Urine Blood (Negative) Urine RBC (0-5) /hpf Urine Bacteria (None) /hpf 09/01/21 09/01/2121 Range/Units 17:27 20:16 00:59 MCHC (31.0-37.0) g/dL Plt Count (150-450) k/uL Lymphocytes # (1.0-4.8) k/uL ESR (0-15) mm/hr D-Dimer (<0.60) mg/L FEU POC Glucose (mg/dL) 130 H 113 H 116 H (75-99) mg/dL C-Reactive Protein (<1.0) mg/dL Urine Protein (Negative) Urine Ketones (Negative) Urine Blood (Negative) Urine RBC (0-5) /hpf Urine Bacteria (None) /hpf 09/02/21 09/02/21 09/02/21 Range/Units 02:09 06:07 07:21 MCHC 30.8 L (31.0-37.0) g/dL Plt Count 90 L (150-450) k/uL Lymphocytes # 0.7 L (1.0-4.8) k/uL ESR (0-15) mm/hr D-Dimer (<0.60) mg/L FEU POC Glucose (mg/dL) 125 H (75-99) mg/dL C-Reactive Protein (<1.0) mg/dL Urine Protein Trace H (Negative) Urine Ketones 1+ H (Negative) Urine Blood Small H (Negative) Urine RBC 15 H (0-5) /hpf Urine Bacteria Rare H (None) /hpf Microbiology - Last 24 Hours (Table) 08/31/21 21:30 Blood Culture - Preliminary Blood No Growth after 24 hours 08/31/21 21:45 Blood Culture - Preliminary Blood No Growth after 24 hours 09/01/21 16:00 Urine Culture - Preliminary Urine,Catheterized Comments: carotid doppler report reviewed CT scan - chest: report reviewed Venous US: report reviewed Assessment and Plan (1) DVT (deep venous thrombosis) Current Visit: No Status: Chronic Priority: Medium Code(s): I82.409 - ACUTE EMBOLISM AND THOMBOS UNSP DEEP VN UNSP LOWER EXTREMITY SNOMED Code(s): 543188340 (2) Pulmonary embolism Current Visit: No Status: Chronic Priority: Medium Code(s): I26.99 - OTHER PULMONARY EMBOLISM WITHOUT ACUTE COR PULMONALE SNOMED Code(s): 17843173 (3) Internal jugular (IJ) vein thromboembolism, chronic Current Visit: No Status: Chronic Priority: Medium Code(s): I82.C29 - CHRONIC EMBOLISM AND THOMBOS UNSP INTERNAL JUGULAR VEIN SNOMED Code(s): 367343396803926 Plan: Reviewed doppler CTA from [facility]. Current reports read no PE on CTA, ? thready flow on doppler of lower extremities, no acute DVT reported. 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 I am not aware of any previous carotid studies. Will check [facility] just in case. Did review case with Dr. Aguilera. Cont eliquis 2.5 po BID at this time. No reporting of acute thrombosis. Will review Neurology followup tomorrow. CT head no acute CVA.
[2021-09-02 17:12] LABS: Glucose,Whole Blood 144 mg/dL (75-99)
--- NOTE | 2021-09-02 17:18 | P.GSCN ---
History of Present Illness Consult date: 09/02/21 History of present illness: Anup is a 50-year-old male who presents to the hospital with some altered mental status with unilateral deficit. We're asked to see the patient regarding his chronic blood clot. He has a complicated history of Covid back in December 2020. At that point he was transferred to [facility] with respiratory failure intubation renal failure and required dialysis. He had a bilateral lower extremity DVT as well as PE. At that time he was initiated on a heparin drip and subsequently developed a GI bleed therefore he had an IVC filter placed. He subsequently was able to be discharged home on a prophylactic dose of Lovenox. Given his limited mobility was decided that he should continue on a low dose prophylactic dose of Eliquis. Past Medical History Past Medical History: Diabetes Mellitus, Deep Vein Thrombosis (DVT) (BLE 01/2021), GERD/Reflux, Osteoarthritis (OA), Pulmonary Embolus (PE) (LLL 02/2021), Sleep Apnea/CPAP/BIPAP Additional Past Medical History / Comment(s): Patient "got Covid 10 days after receiving the Covid Vaccine, ended up with double lung Pneumonia, DVT's in both legs, 3 bleeding stomach ulcers, internal bleeding, lost a lot of blood, received 15 units of blood, had dialysis 3 times, vocal cords got roughed up, can only whisper, is still in a wheelchair, can't walk, still in a Covid fog, has Umbrella in chest to prevent blood clots from entering." No CPAP use. History of Any Multi-Drug Resistant Organisms: None Reported Past Surgical History: No Surgical Hx Reported Additional Past Surgical History / Comment(s): "Umbrella placed in chest." Past Anesthesia/Blood Transfusion Reactions: No Reported Reaction Past Psychological History: ADD/ADHD, Anxiety Smoking Status: Never smoker Past Alcohol Use History: None Reported Past Drug Use History: None Reported - Past Family History Father Family Medical History: Deep Vein Thrombosis (DVT) Mother Family Medical History: Cancer, Myocardial Infarction (MT) Medications and Allergies Home Medications Medication Instructions Recorded Confirmed Type ALPRAZolam [Xanax] 0.5 mg PO BID 04/28/21 08/31/21 History Cholecalciferol [Vitamin D3 (25 25 mcg PO DAILY 04/28/21 08/31/21 History Mcg = 1000 Iu)] Escitalopram [Lexapro] 10 mg PO DAILY 04/28/21 08/31/21 History Folic Acid 1 mg PO DAILY 04/28/21 08/31/21 History Modafinil [Provigil] 100 mg PO BID 04/28/21 08/31/21 History Omeprazole 20 mg PO BID 04/28/21 08/31/21 History Apixaban [Eliquis] 2.5 mg PO BID 08/31/21 08/31/21 History Cyanocobalamin (Vitamin B-12) 500 mcg PO DAILY 08/31/21 08/31/21 History [Vitamin B-12] Insulin Aspart [NovoLOG Flexpen] See Protocol SQ AC-BID@0800,1200 08/31/21 08/31/21 History metFORMIN HCL ER [Glucophage XR] 500 mg PO BID-W/MEALS 08/31/21 08/31/21 History Allergies Allergy/AdvReac Type Severity Reaction Status Date / Time bee venom protein (honey bee) Allergy Anaphylaxis Verified 08/31/21 22:25 latex Allergy Rash/Hives Verified 08/31/21 22:25 Surgical - Exam Vital Signs Temp Pulse Resp BP Pulse Ox 99.0 F 101 H 22 153/78 95 08/31/21 20:03 08/31/21 20:03 08/31/21 20:03 08/31/21 20:03 08/31/21 20:03 Genitals a pleasant cooperative morbidly obese male in no acute distress. HEENT is normal cephalic, atraumatic, excellent motion intact. Heart appears regular in rate and rhythm at this time. Lungs are clear bilaterally. Abdomen is soft, obese, nontender. Extremities show no clubbing or cyanosis. There is moderate edema bilaterally with venous stasis changes. Flattened mood and affect. The majority of the history is gained from his father at the bedside. Results There is chronic thrombus noted in the right jugular vein on carotid Doppler area of the carotid arteries appear normal without significant stenosis. There is no evidence of lower extremity DVT at this time - Labs 09/02/21 06:07 09/02/21 06:07 Abnormal Lab Results - Last 24 Hours (Table) 09/01/21 09/01/21 09/01/21 Range/Units 15:41 17:27 20:16 MCHC (31.0-37.0) g/dL Plt Count (150-450) k/uL Lymphocytes # (1.0-4.8) k/uL ESR 17 H (0-15) mm/hr Glucose (70-110) mg/dL POC Glucose (mg/dL) 130 H 113 H (75-99) mg/dL Calcium (8.7-10.3) mg/dL Procalcitonin (0.02-0.09) ng/mL Urine Protein (Negative) Urine Ketones (Negative) Urine Blood (Negative) Urine RBC (0-5) /hpf Urine Bacteria (None) /hpf 09/02/21 09/02/21 09/02/21 Range/Units 00:59 02:09 06:07 MCHC 30.8 L (31.0-37.0) g/dL Plt Count 90 L (150-450) k/uL Lymphocytes # 0.7 L (1.0-4.8) k/uL ESR (0-15) mm/hr Glucose (70-110) mg/dL POC Glucose (mg/dL) 116 H (75-99) mg/dL Calcium (8.7-10.3) mg/dL Procalcitonin (0.02-0.09) ng/mL Urine Protein Trace H (Negative) Urine Ketones 1+ H (Negative) Urine Blood Small H (Negative) Urine RBC 15 H (0-5) /hpf Urine Bacteria Rare H (None) /hpf 09/02/21 09/02/21 09/02/21 Range/Units 06:07 06:07 07:21 MCHC (31.0-37.0) g/dL Plt Count (150-450) k/uL Lymphocytes # (1.0-4.8) k/uL ESR (0-15) mm/hr Glucose 152 H (70-110) mg/dL POC Glucose (mg/dL) 125 H (75-99) mg/dL Calcium 8.6 L (8.7-10.3) mg/dL Procalcitonin 6.14 H (0.02-0.09) ng/mL Urine Protein (Negative) Urine Ketones (Negative) Urine Blood (Negative) Urine RBC (0-5) /hpf Urine Bacteria (None) /hpf 09/02/21 09/02/21 Range/Units 11:38 17:09 MCHC (31.0-37.0) g/dL Plt Count (150-450) k/uL Lymphocytes # (1.0-4.8) k/uL ESR (0-15) mm/hr Glucose (70-110) mg/dL POC Glucose (mg/dL) 133 H 144 H (75-99) mg/dL Calcium (8.7-10.3) mg/dL Procalcitonin (0.02-0.09) ng/mL Urine Protein (Negative) Urine Ketones (Negative) Urine Blood (Negative) Urine RBC (0-5) /hpf Urine Bacteria (None) /hpf Microbiology - Last 24 Hours (Table) 08/31/21 21:30 Blood Culture - Preliminary Blood No Growth after 24 hours 08/31/21 21:45 Blood Culture - Preliminary Blood No Growth after 24 hours 09/01/21 16:00 Urine Culture - Preliminary Urine,Catheterized Diabetes panel 09/02/21 Range/Units 06:07 Sodium 138 (135-145) mmol/L Potassium 4.2 (3.5-5.5) mmol/L Chloride 103 (96-109) mmol/L Carbon Dioxide 20.1 (20.0-27.5) mmol/L BUN 13.2 (9.0-27.0) mg/dL Creatinine 0.8 (0.6-1.5) mg/dL Glucose 152 H (70-110) mg/dL Calcium 8.6 L (8.7-10.3) mg/dL Calcium panel 09/02/21 Range/Units 06:07 Calcium 8.6 L (8.7-10.3) mg/dL Pituitary panel 09/02/21 Range/Units 06:07 Sodium 138 (135-145) mmol/L Potassium 4.2 (3.5-5.5) mmol/L Chloride 103 (96-109) mmol/L Carbon Dioxide 20.1 (20.0-27.5) mmol/L BUN 13.2 (9.0-27.0) mg/dL Creatinine 0.8 (0.6-1.5) mg/dL Glucose 152 H (70-110) mg/dL Calcium 8.6 L (8.7-10.3) mg/dL Adrenal panel 09/02/21 Range/Units 06:07 Sodium 138 (135-145) mmol/L Potassium 4.2 (3.5-5.5) mmol/L Chloride 103 (96-109) mmol/L Carbon Dioxide 20.1 (20.0-27.5) mmol/L BUN 13.2 (9.0-27.0) mg/dL Creatinine 0.8 (0.6-1.5) mg/dL Glucose 152 H (70-110) mg/dL Calcium 8.6 L (8.7-10.3) mg/dL Assessment and Plan Assessment: Chronic appearing right internal jugular vein DVT History of DVT PE His review of IVC filter placement History of Covid Plan: At this time all imaging appears to show a chronic DVT. No further workup or evaluation is necessary. It was likely the patient at the time of his overall significant had instrumentation and/or lines for access and/or dialysis in this area and would think that this relates that. No need for change in anticoa gulation measures at this point. We'll continue to monitor and in the future if he becomes a candidate to have removal of the filter we will be available to do so.
--- NOTE | 2021-09-02 17:46 | PN ---
PROGRESS NOTE DATE OF SERVICE: 09/02/2021 This 50-year-old gentleman who was admitted with change in mental status also had COVID- 19 infection. The sensorium is gradually improving at this time. The patient is also undergoing a full neurologic workup. Carotid Doppler was done, which showed less than 20% stenosis. No chest pain. No palpitations. No fever. PHYSICAL EXAMINATION: Alert and oriented x2. Pulse is 68, blood pressure 118/82, respiration 18, temperature 98.2, pulse ox 98% on 2 L. HEENT: Conjunctivae normal. NECK: No jugular venous distention. CARDIOVASCULAR: S1, S2 muffled. RESPIRATION: Breath sounds diminished at the bases. A few scattered rhonchi. ABDOMEN: Soft. NERVOUS SYSTEM: No focal deficits. LABS: Platelets 90. Other labs and glucose noted. Procalcitonin is 26.14. ASSESSMENT: 1. Change in mental status and acute metabolic encephalopathy, possibly secondary to COVID-19. Rule out sepsis. 2. Increased white count with elevated procalcitonin. 3. Elevated D-dimer. Rule out acute pulmonary embolism. 4. Elevated random glucose and diabetes mellitus, type 2. 5. History of deep vein thrombosis. 6. Gastroesophageal reflux disease. 7. History of degenerative joint disease. 8. History of sleep apnea. 9. History of recent COVID-19 with bilateral DVT and bleeding stomach ulcer, status post massive blood transfusion. 10.History of recent renal failure, on hemodialysis. 11.History of recent IVC filter and DVT. 12.History of attention deficit disorder, attention deficit hyperactivity disorder. 13.Anxiety. 14.Super morbid obesity. 15.FULL CODE. RECOMMENDATION AND DISCUSSION: I recommend to continue current medications, continue with the monitoring, symptomatic treatment. I would also recommend a course of empiric antibiotics. Obtain the cultures. Chest CTA showed no evidence of pulmonary embolism but showed evidence of bilateral interstitial pneumonia. Guarded prognosis. Further recommendations to follow. MMODL / IJN: [id number] /
[2021-09-02 20:32] LABS: Glucose,Whole Blood 134 mg/dL (75-99)
[2021-09-03] MEDS: SODIUM CHLORIDE 0.9% 1,000 ML IV SCH ×3 (04:37→17:19)
[2021-09-03 06:01] LABS: Basophils % (A) 1 %; Eosinophils # (A) 0.1 k/uL (0-0.7); Eosinophils % (A) 2 %; HCT 40.7 % (39.0-53.0); HGB 12.6 gm/dL (13.0-17.5); Hypochromasia Slight; Lymphocytes # (A) 1.2 k/uL (1.0-4.8); Lymphocytes % (A) 25 %; MCH 28.6 pg (25.0-35.0); MCV 92.5 fL (80.0-100.0); Mean Platelet Volume 8.6; Monocytes # (A) 0.3 k/uL (0-1.0); Monocytes % (A) 6 %; Neutrophils % (A) 63 %; Platelet Count 109 k/uL (150-450); RDW 13.6 % (11.5-15.5); WBC 4.7 k/uL (3.8-10.6)
--- NOTE | 2021-09-03 06:17 | PN ---
PROGRESS NOTE DATE OF SERVICE: 09/02/2021 REASON FOR FOLLOWUP: Fever. INTERVAL HISTORY: The patient is afebrile. The patient is currently breathing comfortably on room air. Denies having any chest pain. No shortness of breath. No cough. No nausea, vomiting. No abdominal pain. No diarrhea. PHYSICAL EXAMINATION: Blood pressure 126/72 with a pulse of 68, temperature 98.2. He is 96% on room air. General description is a middle-aged male up in the chair in no distress. Respiratory system: Unlabored breathing. Clear to auscultation anteriorly. Heart S1, S2. Regular rate and rhythm. Abdomen soft, no tenderness. Extremities with swelling but no redness. LABS: Hemoglobin 13.8, white count 4.4, creatinine 0.8. DIAGNOSTIC IMPRESSION AND PLAN: Patient admitted to the hospital with weakness. The patient did have elevated white count and some cloudy urine. Urine has not been significantly positive. Urine showing Gram-negative. Rocephin has been added that will be continued while waiting for the culture to finalize and monitor clinical course closely. MMODL / IJN: [id number] /
[2021-09-03 07:19] LABS: Glucose,Whole Blood 123 mg/dL (75-99)
[2021-09-03] MEDS: INSULIN ASPART (NovoLOG) 100 UNIT/ML VIAL SQ SCH ×4 (08:34→21:41)
[2021-09-03] MEDS: PANTOPRAZOLE 40 MG/10 ML VIAL IVP SCH ×2 (08:36→21:43)
[2021-09-03] MEDS: ESCITALOPRAM 10 MG TAB PO SCH (08:37)
[2021-09-03] MEDS: modafiniL 100 MG TAB PO SCH ×2 (08:37→12:41)
[2021-09-03] MEDS: APIXABAN 2.5 MG TABLET PO SCH ×2 (08:37→21:43)
[2021-09-03] MEDS: CYANOCOBALAMIN 500 MCG TAB PO SCH (08:37)
[2021-09-03] MEDS: FOLIC ACID 1 MG TAB PO SCH (08:37)
[2021-09-03] MEDS: CHOLECALCIFEROL 25 MCG (1000 IU) TABLET PO SCH (08:37)
[2021-09-03 09:31] LABS: Anion Gap 9.9 mmol/L (10.00-18.00); BUN/Creat Ratio 18.82 Ratio (12.00-20.00); Blood Urea Nitrogen 14.3 mg/dL (9.0-27.0); Calcium 8.4 mg/dL (8.7-10.3); Carbon Dioxide 24.5 mmol/L (20.0-27.5); Non-African American GFR(CKD) 107.9 (60.0-200.0); Potassium 4.1 mmol/L (3.5-5.5)
--- NOTE | 2021-09-03 09:40 | P.PN ---
Subjective Progress Note Date: 09/02/21 Patient was seen for a follow-up. Patient is sitting in the chair. Patient's dad was also present. No further syncopal spells, no new symptoms. Objective - Vital Signs Vital signs: Vital Signs Temp 97.6 F 09/03/21 04:29 Pulse 67 09/03/21 04:29 Resp 20 09/03/21 04:29 BP 122/81 09/03/21 04:29 Pulse Ox 95 09/03/21 04:29 Intake & Output 09/02/21 09/03/21 09/03/21 18:59 06:59 18:59 Intake Total 260 1390 Output Total 800 950 Balance -540 440 Intake: Intake, IV Titration 260 1040 Amount Sodium Chloride 0.9% 1, 260 1040 000 ml @ 130 mls/hr IV . Q7H42M [facility] Rx#:[id number] Oral 350 Output: Urine 800 950 Other: Voiding Method Indwelling Catheter Indwelling Catheter - Exam Patient is alert and awake. Examination remains unchanged. Speech and language functions are intact. - Labs CBC & Chem 7: 09/03/21 05:31 09/03/21 05:31 Labs: Abnormal Lab Results - Last 24 Hours (Table) 09/02/21 09/02/21 09/02/21 Range/Units 06:07 06:07 11:38 Hgb (13.0-17.5) gm/dL Plt Count (150-450) k/uL Anion Gap (10.00-18.00) mmol/L Glucose 152 H (70-110) mg/dL POC Glucose (mg/dL) 133 H (75-99) mg/dL Calcium 8.6 L (8.7-10.3) mg/dL Procalcitonin 6.14 H (0.02-0.09) ng/mL 09/02/21 09/02/21 09/03/21 Range/Units 17:09 20:30 05:31 Hgb 12.6 L (13.0-17.5) gm/dL Plt Count 109 L (150-450) k/uL Anion Gap (10.00-18.00) mmol/L Glucose (70-110) mg/dL POC Glucose (mg/dL) 144 H 134 H (75-99) mg/dL Calcium (8.7-10.3) mg/dL Procalcitonin (0.02-0.09) ng/mL 09/03/21 09/03/21 Range/Units 05:31 07:18 Hgb (13.0-17.5) gm/dL Plt Count (150-450) k/uL Anion Gap 9.90 L (10.00-18.00) mmol/L Glucose 135 H (70-110) mg/dL POC Glucose (mg/dL) 123 H (75-99) mg/dL Calcium 8.4 L (8.7-10.3) mg/dL Procalcitonin (0.02-0.09) ng/mL Microbiology - Last 24 Hours (Table) 08/31/21 21:45 Blood Culture - Preliminary Blood No Growth after 48 hours 08/31/21 21:30 Blood Culture - Preliminary Blood No Growth after 48 hours 09/01/21 16:00 Urine Culture - Preliminary Urine,Catheterized Gram Neg Bacilli Assessment and Plan Assessment: * Syncopal spell, probably vasovagal. * Acute UTI * History of severe Covid infection, status post prolonged rehab. * History of GI bleed, bilateral DVT. * History of renal insufficiency, now resolved. * Morbid obesity. * Venous stasis in the lower extremities. * History of learning disability Plan: * Carotid Doppler revealed less than 20% stenosis in both ICA. Antegrade flow in the vertebral arteries. There appears to be some thrombus in the right jugular vein without complete occlusion and this is consistent with chronic venous thrombosis. Patient currently on Eliquis 2.5 mg twice a day. Vascular surgical input appreciated. * Patient probably had a syncopal spell. Stay well hydrated. Patient also has UTI, for which patient is on ceftriaxone. Infectious disease on board. * Patient's ammonia is normal < 9, hemoglobin A1c 5.0 on 03/04/2021. B12 1291. * Neurologically, no other workup indicated. * Neurologically clear. We will sign off. Please reconsult neurology if any other concerns.
[2021-09-03] MEDS: TAMSULOSIN 0.4 MG CAP.ER.24H PO SCH (11:16)
[2021-09-03 12:24] LABS: Glucose,Whole Blood 116 mg/dL (75-99)
[2021-09-03] MEDS: THIAMINE 100 MG TAB PO SCH (12:41)
[2021-09-03] MEDS: MULTIVITAMINS, THERA 1 EACH TAB PO SCH (12:41)
[2021-09-03 17:24] LABS: Glucose,Whole Blood 109 mg/dL (75-99)
--- NOTE | 2021-09-03 19:29 | PN ---
PROGRESS NOTE DATE OF SERVICE: 09/03/2021 This 50-year-old gentleman who was admitted with some change in mental status, metabolic encephalopathy and COVID-19 also had E coli UTI. The patient is on empiric antibiotics. No chest pain. No palpitations. No fever. Carotid Doppler was done which showed 20% stenosis on both sides. Dr. Arias has seen the patient and recommended continued antibiotics and outpatient followup. No chest pain. No palpitations. No fever. PHYSICAL EXAMINATION: Alert and oriented x2. Pulse 68, blood pressure 129/67, respiration 17, temperature 98.3, pulse ox 98% on room air. HEENT: Conjunctivae normal. NECK: No jugular venous distention. CARDIOVASCULAR: S1, S2 muffled. RESPIRATION: Breath sounds diminished at the bases. A few scattered rhonchi. ABDOMEN: Soft, nontender. LEGS: No edema. No swelling. NERVOUS SYSTEM: No focal deficit. LABS: WBC ntd_, hemoglobin 12.7. Other labs are noted. ASSESSMENT: 1. Change in mental status and acute metabolic encephalopathy, possibly secondary to acute COVID-19 infection. 2. Acute urinary tract infection with possible sepsis, present on admission. 3. Increased white count, elevated procalcitonin. 4. Elevated D-dimer. Acute pulmonary embolism unlikely. 5. Increased random glucose and diabetes mellitus, type 2. 6. History of deep vein thrombosis. 7. Gastroesophageal reflux disease. 8. History of degenerative joint disease. 9. History of sleep apnea. 10.History of recent COVID-19 with bilateral DVT and bleeding stomach ulcer, status post massive blood transfusions. 11.History of recent renal failure, on hemodialysis. 12.History of recent IVC filter and DVT. 13.History of attention deficit disorder, attention deficit hyperactivity disorder. 14.Anxiety. 15.Super morbid obesity. 16.FULL CODE. RECOMMENDATIONS AND DISCUSSION: I recommend to continue current medications, continue with the monitoring, symptomatic treatment. Otherwise, the chest CTA was reviewed which showed no evidence of any pulmonary embolism. We will continue to monitor. Continue the rest of the medications. Continue the antibiotics. Possibly home with p.o. antibiotics within the next 24 hours. Guarded prognosis. Further recommendations to follow. MMODL / IJN: [id number] / FREDDY
--- NOTE | 2021-09-03 19:35 | PN ---
PROGRESS NOTE DATE OF SERVICE: 09/03/2021 REASON FOR FOLLOWUP: Fever. INTERVAL HISTORY: The patient is afebrile. The patient is breathing comfortably. The patient denies having any chest pain, shortness of breath or cough. No nausea, vomiting. No abdominal pain or diarrhea. Patient's Arias catheter has been discontinued and the patient is able to urinate without any problem. PHYSICAL EXAMINATION: Blood pressure 129/67, pulse of 68, temperature 98.3. He is 98% on room air. General description is a middle-aged male up in the chair in no distress. Respiratory system: Unlabored breathing, clear to auscultation anteriorly. Heart S1, S2. Regular rate and rhythm. Abdomen soft, no tenderness. Extremities with swelling but no redness. LABS: Hemoglobin is 12.1, white count 4.7, creatinine 0.8. DIAGNOSTIC IMPRESSION AND PLAN: Patient with a fever and elevated white count, possible E coli UTI, overall improvement on the Rocephin. Finishing therapy with oral Ceftin for about a week and close outpatient followup. MMODL / IJN: [id number] /
[2021-09-03 20:08] LABS: Glucose,Whole Blood 128 mg/dL (75-99)
[2021-09-04] MEDS: SODIUM CHLORIDE 0.9% 1,000 ML IV SCH (00:06)
[2021-09-04 05:05] VITALS: TEMP 98.1
[2021-09-04 07:25] LABS: Glucose,Whole Blood 106 mg/dL (75-99)
[2021-09-04] MEDS: INSULIN ASPART (NovoLOG) 100 UNIT/ML VIAL SQ SCH ×2 (07:44→11:58)
[2021-09-04] MEDS: modafiniL 100 MG TAB PO SCH ×2 (07:57→12:58)
[2021-09-04] MEDS: ESCITALOPRAM 10 MG TAB PO SCH (08:00)
[2021-09-04] MEDS: PANTOPRAZOLE 40 MG/10 ML VIAL IVP SCH (08:00)
[2021-09-04] MEDS: FOLIC ACID 1 MG TAB PO SCH (08:01)
[2021-09-04] MEDS: TAMSULOSIN 0.4 MG CAP.ER.24H PO SCH (08:01)
[2021-09-04] MEDS: CHOLECALCIFEROL 25 MCG (1000 IU) TABLET PO SCH (08:01)
[2021-09-04] MEDS: CYANOCOBALAMIN 500 MCG TAB PO SCH (08:01)
[2021-09-04] MEDS: APIXABAN 2.5 MG TABLET PO SCH (08:01)
[2021-09-04 11:52] LABS: Glucose,Whole Blood 102 mg/dL (75-99)
[2021-09-04 12:30] VITALS: BP 147/89; PULSE 69; RESP 17
[2021-09-04] MEDS: THIAMINE 100 MG TAB PO SCH (12:58)
[2021-09-04] MEDS: MULTIVITAMINS, THERA 1 EACH TAB PO SCH (12:58)
--- NOTE | 2021-09-04 19:18 | DS ---
DISCHARGE SUMMARY DATE OF SERVICE: 09/04/2021 FINAL DIAGNOSES: 1. Change in mental status and acute metabolic encephalopathy possibly secondary to acute COVID-19 infection. 2. Acute urinary tract infection, possibly sepsis, present on admission with Escherichia coli. 3. Increased WBC and elevated procalcitonin. 4. Elevated D-dimer, acute pulmonary embolism unlikely. 5. Increased random glucose and diabetes type 2. 6. History of DVT. 7. GERD. 8. History of DJD. 9. History of sleep apnea. 10.History of recent COVID-19 with bilateral DVT and bleeding stomach ulcer status post massive blood transfusion elsewhere. 11.History of recent renal failure on hemodialysis. 12.History of recent IVC filter and DVT. 13.History of ADD/ADHD. 14.Anxiety. 15.Obesity. 16.FULL CODE. DISCHARGE DISPOSITION: The patient discharged in stable condition with guarded prognosis. ( ) multiple consultants. Total time 35 minutes. HISTORY OF PRESENT ILLNESS: This is a 50-year-old gentleman with a past medical history of multiple medical problems, was admitted with change in mental status as well as possible urinary tract infection with sepsis. Patient treated symptomatically. Antibiotics initiated. Dr. Campbell saw the patient. On exam vitals stable. Cardiovascular S1, S2. Abdomen soft. Nervous system: No focal deficits. The patient improving significantly. Discharged home in stable condition with guarded prognosis. Diet is cardiac. Follow up with Dr. Jordon Niño in 1-2 days. Follow up with Dr. Love as recommended. DISCHARGE MEDICATIONS: 1. Eliquis 2.5 mg p.o. b.i.d. 2. Folic acid 1 mg p.o. daily. 3. Glucophage 500 mg p.o. b.i.d. 4. Lexapro 10 mg daily. 5. NovoLog as before. 6. Omeprazole 20 mg b.i.d. 7. Provigil 100 mg b.i.d. 8. Vitamin B12 500 mg p.o. daily. 9. Vitamin D3 25 mcg p.o. daily. 10.Xanax 0.5 b.i.d. 11.Ceftin 500 mg p.o. b.i.d. for 7 days. 12.Flomax 0.4 daily. 13.Multivitamins 1 p.o. daily. 14.Thiamine 100 mg p.o. daily. Once again, the patient discharged in stable condition with guarded prognosis. MMODL / IJN: [id number] /
== END 2021-09-04 16:34 | disposition home or self-care (01) | DRG 871 ==
LOC: EC 19:51 → 6NMEDSUR 23:33 → 5NMEDONC 09-01 04:19 → OBSVTOIN 09-03 07:57
PROVIDERS: ADMIT Hospitalist; ATTEND Hospitalist
DX: A41.51 Sepsis due to Escherichia coli [E. coli] (principal); G93.41 Metabolic encephalopathy; N39.0 Urinary tract infection, site not specified; I82.C21 Chronic embolism and thrombosis of right internal jugular vein; I82.542 Chronic embolism and thrombosis of left tibial vein; E11.9 Type 2 diabetes mellitus without complications; Z20.822 Contact with and (suspected) exposure to COVID-19; Z68.38 Body mass index [BMI] 38.0-38.9, adult; I45.10 Unspecified right bundle-branch block; K21.9 Gastro-esophageal reflux disease without esophagitis; F41.9 Anxiety disorder, unspecified; F81.9 Developmental disorder of scholastic skills, unspecified; I87.8 Other specified disorders of veins; F90.9 Attention-deficit hyperactivity disorder, unspecified type; M19.90 Unspecified osteoarthritis, unspecified site; G47.33 Obstructive sleep apnea (adult) (pediatric); Z87.440 Personal history of urinary (tract) infections; E66.01 Morbid (severe) obesity due to excess calories; R55 Syncope and collapse; R60.0 Localized edema; Z86.16 Personal history of COVID-19; Z87.01 Personal history of pneumonia (recurrent); Z91.030 Bee allergy status; Z91.040 Latex allergy status; Z79.01 Long term (current) use of anticoagulants; Z79.84 Long term (current) use of oral hypoglycemic drugs; Z79.899 Other long term (current) drug therapy; Z86.711 Personal history of pulmonary embolism; Z99.2 Dependence on renal dialysis; Z87.11 Personal history of peptic ulcer disease; Z95.828 Presence of other vascular implants and grafts
CPT/HCPCS: 36415; 70450; 71046; 71275; 80048; 80053; 80306; 81001; 82140; 82728; 83605; 83615; 84145; 84484; 85025; 85379; 85610; 85652; 85730; 86140; 87040; 87077; 87086; 87186; 87502; 87635; 93005; 93880; 93970; 99285

== ENCOUNTER → 2024-12-28 | Outpatient (CLI) | payer MEDICARE, OTHER ==
[2024-12-28 14:18] LABS: Basophils # (A) 0.04 10*3/uL (0.00-0.10); Basophils % (A) 0.5 %; Eosinophils # (A) 0.18 10*3/uL (0.04-0.35); HCT 48.1 % (39.6-50.0); HGB 15.6 g/dL (13.0-17.0); Lymphocytes # (A) 1.95 10*3/uL (0.90-5.00); MCH 29.9 pg (27.0-32.0); MCHC 32.4 g/dL (32.0-37.0); MCV 92.1 fL (80.0-97.0); Mean Platelet Volume 10.7 fL (9.5-12.2); Monocytes % (A) 6.8 %; Neutrophils # (A) 6.06 10*3/uL (1.80-7.70); Neutrophils % (A) 68.5 %; Platelet Count 162 10*3/uL (140-440); RBC 5.22 10*6/uL (4.40-5.60); RDW 13.7 % (11.5-14.5); WBC 8.85 10*3/uL (4.50-10.00)
[2024-12-28 14:28] LABS: ALT 27 U/L (4-49); AST 26 U/L (17-59); African American GFR (CKD) >90 (>60 ml/min/1.73 sqM); Albumin 4.1 g/dL (3.5-5.0); Albumin/Globulin Ratio 1.4; Alkaline Phosphatase 91 U/L (38-126); Amylase 54 U/L (30-110); Anion Gap 8 mmol/L; Blood Urea Nitrogen 18 mg/dL (9-20); Calcium 9.1 mg/dL (8.4-10.2); Carbon Dioxide 31 mmol/L (22-30); Chloride 101 mmol/L (98-107); Globulin 2.9 g/dL; Glucose 119 mg/dL (74-99); Lipase 125 U/L (23-300); Non-African American GFR(CKD) 89 (>60 ml/min/1.73 sqM); Potassium 4.7 mmol/L (3.5-5.1); Sodium 140 mmol/L (137-145); Total Bilirubin 0.9 mg/dL (0.2-1.3)
--- NOTE | 2024-12-28 15:02 | CT ---
EXAMINATION TYPE: CT abdomen pelvis w con DATE OF EXAM: 12/28/2024 2:52 PM COMPARISON: None CLINICAL INDICATION: Male, 54 years old with history of S30.1XXA CONTUSION OF ABDOMINAL WALL, INITIAL ENCO; RLQ pain TECHNIQUE: Axial CT abdomen pelvis w con;Sagittal and coronal reformats were created on a separate w orkstation. Contrast used:100ml mL of Isovue 300 with IV Contrast, (none if empty) Oral contrast used: with Oral Contrast (none if empty) CT DLP: 3062.3 mGycm, Automated exposure control for dose reduction was used. FINDINGS: LOWER CHEST: Unremarkable ABDOMEN LIVER: Unremarkable GALLBLADDER AND BILE DUCTS: High density layering probably sludge in the gallbladder. Fat-containing right inguinal hernia. PANCREAS: Unremarkable. SPLEEN: Unremarkable. ADRENAL GLANDS: Unremarkable. KIDNEYS AND URETERS: No evidence of hydronephrosis or obstructing renal calculus. The ureters are unr emarkable. PELVIS BLADDER: No evidence for wall thickening or mass given limitations of exam. REPRODUCTIVE: Unremarkable. ABDOMEN & PELVIS STOMACH AND BOWEL: No evidence of bowel obstruction. The appendix is visualized and within normal alfredo its. No obstructive uropathy. PERITONEUM/RETROPERITONEUM: No evidence of pneumoperitoneum or free fluid. VASCULATURE: No evidence of aortic aneurysm. IVC filter in place. MUSCULOSKELETAL: No acute osseous abnormalities. Moderate disc degeneration changes are present throu ghout the thoracolumbar spine. LYMPH NODES: No gross evidence for lymphadenopathy. SOFT TISSUE/ABDOMINAL WALL: Right fat containing inguinal hernia. IMPRESSION: 1. No evidence for appendicitis. No obstructive uropathy or renal calculus. 2. No additional acute finding in the right lower quadrant. 3. Biliary/gallbladder sludge suggested. [facility], , 12/28/2024 3:00 PM
== END | disposition home or self-care (01) ==
LOC: RADCTMAIN 12:54
PROVIDERS: ATTEND Family Medicine
DX: S30.1XXA Contusion of abdominal wall, initial encounter (principal); K40.90 Unilateral inguinal hernia, without obstruction or gangrene, not specified as recurrent; X58.XXXA Exposure to other specified factors, initial encounter
CPT/HCPCS: 80053; 82150; 83690; 85025; 74177; 36415; Q9967